=== PATIENT | male | born 1980 | race Caucasian/White ===

== ENCOUNTER 2021-01-25 12:52 | Observation (INO) | payer BC, SELFPAY ==
[2021-01-25] VITALS (10 sets, daily range): BP systolic 103–139; BP diastolic 65–92; PULSE 98–135; RESP 14–28; TEMP 36.8–37.4; O2SAT 95–100; BMI 34.2; BMI 35.4
--- NOTE | 2021-01-25 12:54 | ECG_ITS ---
APPROVED REPORT Exam: Resting ECG HR:125 bpm ECG Measurements Heart Rate 125 AXES WA 120 P 59 QRSd 84 QRS 19 QT 320 T 61 QTc 461 Conclusion Sinus tachycardia Otherwise normal ECG Electronically signed by : Jesus Rock MD 01/26/2021 06:14:02
--- NOTE | 2021-01-25 12:58 | XR_ITS ---
PROCEDURE: XR CHEST PORTABLE CLINICAL HISTORY: POST COVID COMPARISON: No exams were available for comparison FINDINGS: The cardiomediastinal silhouette and pulmonary vascularity are within normal limits. There are multifocal patchy areas of ground-glass infiltrate suspicious for Covid19 pneumonia. No acute bony findings. . IMPRESSION: Patchy ground-glass infiltrates suggesting Covid19 pneumonia. Dictated by: Seferino Delacruz MD 01/25/2021 14:30 Seferino Delacruz MD in [place] 01/25/2021 14:30
--- NOTE | 2021-01-25 12:59 | CT_ITS ---
PROCEDURE INFORMATION: Exam: CT Head Without Contrast Exam date and time: 01/25/2021 12:59 PM Age: 40 years old Clinical indication: Syncope and collapse; Patient HX: Syncopal episode, 3 weeks post covid TECHNIQUE: Imaging protocol: Computed tomography of the head without contrast. Radiation optimization: All CT scans at this facility use at least one of these dose optimization techniques: automated exposure control; mA and/or kV adjustment per patient size (includes targeted exams where dose is matched to clinical indication); or iterative reconstruction. COMPARISON: No relevant prior studies available. FINDINGS: Brain: Normal. No hemorrhage. Unremarkable white matter. No mass effect. Cerebral ventricles: No ventriculomegaly. Paranasal sinuses: Visualized sinuses are unremarkable. No fluid levels. Mastoid air cells: Visualized mastoid air cells are well aerated. Bones/joints: No acute fracture. Soft tissues: No acute changes IMPRESSION: No acute intracranial abnormality.
[2021-01-25 13:08] LABS: Chloride 99 mmol/L (98-107); Sodium 135 mmol/L (136-145)
[2021-01-25 13:09] LABS: Potassium 4.9 mmoL/L (3.5-5.1)
[2021-01-25 13:10] LABS: Basophils # 0.2 K/mm3 (0-0.2); Eosinophils # 0.1 K/mm3 (0.0-0.4); Eosinophils % 0.3 % (0.1-12.0); Hematocrit 45.7 % (42.0-52.0); Hemoglobin 14.6 g/dL (14.1-18.0); Lymphocytes # 4.1 K/mm3 (0.7-4.5); Lymphocytes % 17.7 % (10-50); Mean Corpuscular HGB Conc 31.8 g/dL (31.8-35.4); Mean Corpuscular Hemoglobin 28.9 pg (27.0-31.2); Mean Corpuscular Volume 90.7 fl (80-94); Monocytes # 1.5 K/mm3 (0.1-1.0); Monocytes % 6.4 % (1.7-9.3); Neutrophils # 17.2 K/mm3 (1.8-7.8); Neutrophils % 74.7 % (37.0-80.0); Platelet Count 336 K/mm3 (142-424); Red Blood Count 5.04 M/mm3 (4.60-6.20); Red Cell Distribution Width 13.3 % (11.5-17.5)
[2021-01-25 13:11] LABS: Blood Urea Nitrogen 18 mg/dl (9-20); Creatinine Clearance Estimated 129 mL/min (50-200); Estimated Glomerular Filt Rate 74 ml/min (>60); GFR (African American) 90 ML/MIN (>60)
[2021-01-25 13:12] LABS: Calcium 9.8 mg/dl (8.4-10.2); Glucose 318 mg/dl (74-100)
[2021-01-25 13:17] LABS: MANUAL DIFFERENTIAL MANUAL DIFFERENTIAL (MANUAL DIFF)
[2021-01-25 13:23] LABS: Troponin I 0.02 ng/ml (0.00-0.034)
[2021-01-25 13:39] LABS: Anion Gap 35.9 mEq/L (5-15); Carbon Dioxide < 5 mmol/L (22.0-30.0)
--- NOTE | 2021-01-25 13:42 | PC.NURSE ---
lab called with criticals co2 of 5 md aware
[2021-01-25 14:09] LABS: Lymphocytes % 16 % (10-50); Monocytes % 4 % (2-9); Neutrophils % 80 % (42-76); Nucleated Red Blood Cells 1; Total Cells Counted 100
[2021-01-25 14:10] LABS: Anisocytosis 1+; Macrocytosis 1+; Platelet Estimate Normal
[2021-01-25 14:47] LABS: D-Dimer 0.86 ug/mL (0.0-0.5)
--- NOTE | 2021-01-25 15:49 | PC.NURSE ---
LISA TENA speaking with Dr. Dozier at [facility]
--- NOTE | 2021-01-25 16:07 | CT_ITS ---
PROCEDURE INFORMATION: Exam: CTA Chest With Contrast Exam date and time: 01/25/2021 4:07 PM Age: 40 years old Clinical indication: Dyspnea; Patient HX: Elevated d-dimer TECHNIQUE: Imaging protocol: Computed tomographic angiography of the chest with contrast. 3D rendering (Not supervised by radiologist): MIP and/or 3D reconstructed images were created by the technologist. Radiation optimization: All CT scans at this facility use at least one of these dose optimization techniques: automated exposure control; mA and/or kV adjustment per patient size (includes targeted exams where dose is matched to clinical indication); or iterative reconstruction. Contrast material: ISOVUE 370; Contrast volume: 100 ml; Contrast route: INTRAVENOUS (IV); COMPARISON: CR XR CHEST PORTABLE 01/25/2021 1:37 PM FINDINGS: Pulmonary arteries: No evidence of pulmonary embolism. Aorta: No evidence of aortic dissection. Lungs: Diffuse patchy airspace opacities noted throughout the lungs bilaterally. Commonly reported imaging features of COVID-19 pneumonia are present. Air and fluid noted within the 3 cm density within the left lung base may represent a developing abscess. Pleural spaces: Unremarkable. No pneumothorax. No pleural effusion. Heart: Unremarkable. No cardiomegaly. No pericardial effusion. Lymph nodes: Unremarkable. No enlarged lymph nodes. Bones/joints: The thoracic spine demonstrates mild degenerative changes at multiple levels. Soft tissues: Unremarkable. IMPRESSION: 1. No evidence of pulmonary embolism. 2. No evidence of aortic dissection. 3. Diffuse patchy airspace opacities noted throughout the lungs bilaterally. 4. Commonly reported imaging features of COVID-19 pneumonia are present. Other processes such as influenza pneumonia and organizing pneumonia, as can be seen with drug toxicity and connective tissue disease, can cause a similar imaging pattern. (Reference: Walker) 5. Air and fluid noted within the 3 cm density within the left lung base may represent a developing abscess. REFERENCES: Walker Leon, et al., Radiological Society of [place] Expert Consensus Statement on Reporting Chest CT Findings Related to COVID-19. Endorsed by the Society of Thoracic Radiology, the [place] [employer], and RSNA. Published May 04, 2019.
--- NOTE | 2021-01-25 16:22 | PC.NURSE ---
pt going to for chest CT
[2021-01-25 16:25] LABS: Lactic Acid 1.9 mmol/L (0.7-2.1)
[2021-01-25 16:42] LABS: Troponin I 0.01 ng/ml (0.00-0.034)
--- NOTE | 2021-01-25 17:45 | PC.NURSE ---
Service Dr chicas.
[2021-01-25 17:56] LABS: Coronavirus 19, PCR Not Detected (NotDetected); Influenza A, PCR Not Detected (NotDetected); Influenza B, PCR Not Detected (NotDetected); Microscopic, Urine URINE MICROSCOPIC (MICROSCOPIC)
[2021-01-25 18:01] LABS: Appearance,Urine CLEAR (Clear); Bilirubin,Urine Negative (Negative); Blood, Urine Negative (Negative); Color,Urine YELLOW (Yellow); Glucose,Urine (UA) 3+ (Negative); Ketones,Urine Negative (Negative); Leukocyte Esterase,Urine Negative (Negative); Nitrate,Urine Negative (Negative); Protein,Urine Negative (Negative); Specific Gravity, Urine <= 1.005 (1.005-1.030); Urobilinogen,Urine 0.2 EU/dl (0.2)
[2021-01-25 18:25] LABS: Bacteria,Urine Trace /lpf; RBC,Urine Occasional #/hpf (0-3)
[2021-01-25 19:48] LABS: Troponin I 0.02 ng/ml (0.00-0.034)
--- NOTE | 2021-01-25 21:10 | PC.NURSE ---
PT ARRIVED TO FLOOR VIA W/C FROM ED W/STAFF @ [id number]
--- NOTE | 2021-01-25 21:29 | PC.NURSE ---
report called to @[phone]
[2021-01-25 22:18] LABS: POC Glucose,Bedside 256 (70-110)
--- NOTE | 2021-01-25 22:21 | HMH.EDGENADL ---
ED Disposition Clinical Impression: Inpatient admission status Pulmonary abscess Qualifiers: Laterality: right Lung location: unspecified part of lung Disposition: Admitted As Inpatient Condition on Discharge: Undetermined - Critical Care Critical Care Time: No Attestation: On 01/25/21, the high probability of a clinically significant, sudden or life threatening deterioration of the following system(s) required my full and direct attention, intervention and personal management. The time I documented below is in addition to time spent performing reported procedures but includes the following listed in this critical care notation. Medical Decision Making - Bobby Inquiry Pt receiving controlled substance: No Vital Signs: 01/25/21 12:59 01/25/21 13:00 01/25/21 13:45 Temperature 98.2 F Temperature Source Oral Pulse Rate 128 H 110 H Pulse Rate [Right Radial] 135 H Respiratory Rate 19 28 H 17 Blood Pressure 105/78 L 103/65 L Blood Pressure [Right Arm] 135/67 Blood Pressure Mean [Right Arm] 89 Blood Pressure Source [Right Arm] Automatic Cuff Blood Pressure Position [Right Arm] Supine 02 Sat by Pulse Oximetry 98 97 96 Oxygen Delivery Method Room Air 01/25/21 14:03 01/25/21 14:30 01/25/21 15:00 Temperature Temperature Source Pulse Rate 113 H 104 H 101 H Pulse Rate [Right Radial] Respiratory Rate 14 17 19 Blood Pressure 106/68 L 103/70 L 117/80 Blood Pressure [Right Arm] Blood Pressure Mean [Right Arm] Blood Pressure Source [Right Arm] Blood Pressure Position [Right Arm] 02 Sat by Pulse Oximetry 96 97 95 Oxygen Delivery Method 01/25/21 15:30 01/25/21 21:25 01/25/21 21:27 Temperature 99.3 F 99.1 F Temperature Source Oral Pulse Rate 102 H 107 H Pulse Rate [Right Radial] 98 H Respiratory Rate 18 18 18 Blood Pressure 107/81 L 139/92 H Blood Pressure [Right Arm] 139/92 H Blood Pressure Mean [Right Arm] 107 Blood Pressure Source [Right Arm] Blood Pressure Position [Right Arm] Supine 02 Sat by Pulse Oximetry 96 100 Oxygen Delivery Method Room Air Room Air - Lab Data Lab Results 01/25/21 12:54: WBC 23.0 H*, RBC 5.04, Hgb 14.6, Hct 45.7, MCV 90.7, MCH 28.9, MCHC 31.8, RDW 13.3, Plt Count 336, MPV 9.0, Neut % (Auto) 74.7, Lymph % (Auto) 17.7, [place] % (Auto) 6.4, Eos % (Auto) 0.3, Baso % (Auto) 1.0, Neut # (Auto) 17.2 H, Lymph # (Auto) 4.1, [place] # (Auto) 1.5 H, Eos # (Auto) 0.1, Baso # (Auto) 0.2, Total Counted 100, Neutrophils % (Manual) 80 H, Lymphocytes % (Manual) 16, Monocytes % (Manual) 4, Nucleated RBCs 1, Platelet Estimate Normal, Anisocytosis 1+, Macrocytosis 1+ 01/25/21 12:54: Sodium 135 L, Potassium 4.9, Chloride 99, Carbon Dioxide < 5 L*, Anion Gap 35.9 H, BUN 18, Creatinine 1.10, Estimated Creat Clear 129, Estimated GFR 74, Est GFR ( Amer) 90, Glucose 318 H, Calcium 9.8, Troponin I 0.02 01/25/21 12:54: D-Dimer 0.86 H 01/25/21 14:46: VBG pH 7.10 L 01/25/21 16:05: Troponin I 0.01 01/25/21 16:05: Lactate 1.9 01/25/21 17:52: Urine Color Yellow, Urine Appearance Clear, Urine pH 6.0, Ur Specific [place] <= 1.005, Urine Protein Negative, Urine Glucose (UA) 3+, Urine Ketones Negative, Urine Blood Negative, Urine Nitrate Negative, Urine Bilirubin Negative, Urine Urobilinogen 0.2, Ur Leukocyte Esterase Negative, Urine RBC Occasional, Urine WBC 3-5, Ur Squamous Epith Cells 3-5, Urine Bacteria Trace 01/25/21 17:52: SARS-CoV-2 (PCR) Not detected, Influenza A Untype (PCR) Not detected, Influenza Type B (PCR) Not detected 01/25/21 19:12: Troponin I 0.02 Result diagrams: 01/25/21 12:54 01/25/21 12:54 Orders (Tests/Meds): ED MEDICATIONS Generic Name Dose Route Start Last Admin Trade Name Freq PRN Reason Stop Dose Admin Albuterol Sulfate puffs 01/25/21 21:25 Albuterol-Hfa 90mcg/Puff Inhaler 8gm IH 02/24/21 21:11 Q4HP PRN Wheezing Fenofibrate 54 mg 01/26/21 09:00 Fenofibrate 54mg Tablet PO 02/25/21 08:59 DA
[2021-01-26 04:00] VITALS: BP 116/61; PULSE 80; RESP 16; TEMP 36.7; O2SAT 97
[2021-01-26 05:24] VITALS: BMI 35.9
--- NOTE | 2021-01-26 05:49 | PC.NURSE ---
Pt. has had no seizure activity; no c/o n/v/d, soa, dizziness or pain this shift.
[2021-01-26 05:52] LABS: Basophils % 0.2 % (0.1-2.0); Eosinophils # 0.1 K/mm3 (0.0-0.4); Eosinophils % 1.1 % (0.1-12.0); Hematocrit 34.3 % (42.0-52.0); Lymphocytes # 1.8 K/mm3 (0.7-4.5); Lymphocytes % 20.6 % (10-50); Mean Corpuscular HGB Conc 34.9 g/dL (31.8-35.4); Mean Corpuscular Hemoglobin 28.8 pg (27.0-31.2); Mean Corpuscular Volume 82.6 fl (80-94); Mean Platelet Volume 8.1 fl (7.4-10.4); Monocytes # 0.8 K/mm3 (0.1-1.0); Monocytes % 9.1 % (1.7-9.3); Neutrophils % 68.9 % (37.0-80.0); Platelet Count 175 K/mm3 (142-424); Red Blood Count 4.16 M/mm3 (4.60-6.20); Red Cell Distribution Width 13.7 % (11.5-17.5); White Blood Count 8.6 K/mm3 (4.8-10.8)
[2021-01-26 06:04] LABS: Alanine Aminotransferase 42 U/L (12-78); Albumin Level 3.6 g/dl (3.5-5.0); Albumin/Globulin Ratio 1.4 (1.1-1.8); Alkaline Phosphatase 75 U/L (38-126); Anion Gap 8.9 mEq/L (5-15); Aspartate Amino Transferase 33 U/L (17-59); Bilirubin,Total 0.6 mg/dl (0.2-1.3); Blood Urea Nitrogen 15 mg/dl (9-20); Calcium 8.8 mg/dl (8.4-10.2); Carbon Dioxide 28 mmol/L (22.0-30.0); Chloride 101 mmol/L (98-107); Creatinine Clearance Estimated 144 mL/min (50-200); Estimated Glomerular Filt Rate 83 ml/min (>60); GFR (African American) 100 ML/MIN (>60); Globulin 2.5 g/dL (1.3-3.2); Potassium 3.9 mmoL/L (3.5-5.1); Sodium 134 mmol/L (136-145); Total Protein,Serum 6.1 g/dl (6.3-8.2)
[2021-01-26 06:05] LABS: Lactic Acid 1.3 mmol/L (0.7-2.1)
[2021-01-26 06:12] LABS: Glucose 170 mg/dl (74-100)
[2021-01-26 06:24] LABS: POC Glucose,Bedside 177 (70-110)
[2021-01-26 08:00] VITALS: BP 112/70; PULSE 103; RESP 18; TEMP 36.9; O2SAT 94
--- NOTE | 2021-01-26 08:43 | HMH.HP ---
*Admission Date: 01/25/21 *Chief complaint: Syncopal event *History of present illness: 40-year-old male presented to the emergency department yesterday after a syncopal/seizure-like event. Patient was at home actually preparing for a trip when he developed an abnormal sensation in the left arm with shaking that spread across the rest of his body. He then lost consciousness. He does report biting the sides of his tongue. He has no recollection of events after that until the paramedics arrived at his home. Patient has no history of seizures. He was transported to the emergency department. Blood pressures were reported as low and patient was given IV fluids. Additional work-up was begun and patient has recent history of both Covid 19 viral pneumonia and influenza that required hospitalization at [facility] for 1 week earlier in the month. Work-up in our emergency department raise suspicion of a developing left pulmonary abscess. Patient had elevated white count as well. Decision was made to admit the patient for observation and IV fluids. This morning patient states he is feeling well. He continues to have the dry cough that he has had since his diagnosis of Covid and influenza pneumonia. He denies any recent fevers or chills. Patient had just seen his personal primary care physician the day of admission. [facility] History I have reviewed the patient's past medical history: Yes Medical History: Reports:: Diabetes Mellitus Type 2, Hypertension Denies:: Cancer, MRSA *Have you ever received a pneumonia vaccine?: No *Have you received a flu vaccine this season?: No Laterality Cases: Left: ACL Repair Amputation: No - *Social History Smoking Status: Never smoker Alcohol Intake: never *Occupational Status:: employed *Travel in the last 8 weeks: None Family Hx:: Cancer Review of Systems - Constitutional Denies anorexia, Denies body ache(s), Denies chills, Denies lack of energy - Eyes Denies blurry vision, Denies loss of vision - ENT Denies bleeding gums, Denies change in voice, Denies ear discharge - *Cardiovascular Reports shortness of breath with activity, Denies chest pain at rest, Denies chest pain with activity - *Respiratory Reports chest congestion, Reports cough, Denies pain on inspiration - *Gastrointestinal Denies belching - *Genitourinary Denies difficulty urinating, Denies painful urination, Denies blood in urine - *Musculoskeletal Denies joint pain, Denies decreased muscle mass - Integumentary/Breasts Denies bleeding lesions - *Neurologic Reports confusion, Reports seizure-like activity, Reports seizure-like activity, Denies localized weakness, Denies loss of vision, Denies numbness - Psychiatric Denies abnormal sleep pattern, Denies change in appetite Meds Home Medications Medication Instructions Recorded Confirmed Type Albuterol Sulfate [Proair Hfa] 2 puff PO Q4HP PRN 01/25/21 01/25/21 History B-Complex with Vitamin C [Super B 1 tab PO DAILY 01/25/21 01/25/21 History Complex-Vitamin C] Cholecalciferol (Vitamin D3) 1,000 unit PO DAILY 01/25/21 01/25/21 History [Vitamin D3 1,000 Unit Cap] Fenofibrate 54 mg PO DAILY 01/25/21 01/25/21 History Pantoprazole Sodium 40 mg PO DAILY 01/25/21 01/25/21 History Rosuvastatin Calcium 10 mg PO DAILY 01/25/21 01/25/21 History Sitagliptin Phosphate [Januvia 50 mg PO DAILY 01/25/21 01/25/21 History 50mg Tablet] Zinc 100 mg PO DAILY 01/25/21 01/25/21 History glipiZIDE [Glipizide ER] 2.5 mg PO DAILY 01/25/21 01/25/21 History lisinopriL [Lisinopril] 10 mg PO DAILY 01/25/21 01/25/21 History Allergies Allergy/AdvReac Type Severity Reaction Status Date / Time No Known Allergies Allergy Verified 01/25/21 12:56 Exam Vital signs and Labs for Last 24 Hours: Temp Pulse Resp BP Pulse Ox 98.5 F 103 H 18 112/70 94 L 01/26/21 08:00 01/26/21 08:00 01/26/21 08:00 01/26/21 08:00 01/26/21 08:00 Laboratory Results - last 24 hr 01/25/21
--- NOTE | 2021-01-26 09:22 | HMH.PHACONS ---
- Pharmacy Consult Date: 01/26/21 Time: 09:22 Referring provider: DR. SPEARS Reason for Consult:: VANCOMYCIN DOSING Allergies and ADEs:: Allergies Allergy/AdvReac Type Severity Reaction Status Date / Time No Known Allergies Allergy Verified 01/25/21 12:56 Home Medications:: Home Medications Medication Instructions Recorded Confirmed Type Albuterol Sulfate [Proair Hfa] 2 puff PO Q4HP PRN 01/25/21 01/25/21 History B-Complex with Vitamin C [Super B 1 tab PO DAILY 01/25/21 01/25/21 History Complex-Vitamin C] Cholecalciferol (Vitamin D3) 1,000 unit PO DAILY 01/25/21 01/25/21 History [Vitamin D3 1,000 Unit Cap] Fenofibrate 54 mg PO DAILY 01/25/21 01/25/21 History Pantoprazole Sodium 40 mg PO DAILY 01/25/21 01/25/21 History Rosuvastatin Calcium 10 mg PO DAILY 01/25/21 01/25/21 History Sitagliptin Phosphate [Januvia 50 mg PO DAILY 01/25/21 01/25/21 History 50mg Tablet] Zinc 100 mg PO DAILY 01/25/21 01/25/21 History glipiZIDE [Glipizide ER] 2.5 mg PO DAILY 01/25/21 01/25/21 History lisinopriL [Lisinopril] 10 mg PO DAILY 01/25/21 01/25/21 History Height: 1.7 m Weight: 103.782 kg Laboratory Results:: Laboratory Results - last 24 hr 01/25/21 12:54: WBC 23.0 H*, RBC 5.04, Hgb 14.6, Hct 45.7, MCV 90.7, MCH 28.9, MCHC 31.8, RDW 13.3, Plt Count 336, MPV 9.0, Neut % (Auto) 74.7, Lymph % (Auto) 17.7, [place] % (Auto) 6.4, Eos % (Auto) 0.3, Baso % (Auto) 1.0, Neut # (Auto) 17.2 H, Lymph # (Auto) 4.1, [place] # (Auto) 1.5 H, Eos # (Auto) 0.1, Baso # (Auto) 0.2, Total Counted 100, Neutrophils % (Manual) 80 H, Lymphocytes % (Manual) 16, Monocytes % (Manual) 4, Nucleated RBCs 1, Platelet Estimate Normal, Anisocytosis 1+, Macrocytosis 1+ 01/25/21 12:54: Sodium 135 L, Potassium 4.9, Chloride 99, Carbon Dioxide < 5 L*, Anion Gap 35.9 H, BUN 18, Creatinine 1.10, Estimated Creat Clear 129, Estimated GFR 74, Est GFR ( Amer) 90, Glucose 318 H, Calcium 9.8, Troponin I 0.02 01/25/21 12:54: D-Dimer 0.86 H 01/25/21 14:46: VBG pH 7.10 L 01/25/21 16:05: Troponin I 0.01 01/25/21 16:05: Lactate 1.9 01/25/21 17:52: Urine Color Yellow, Urine Appearance Clear, Urine pH 6.0, Ur Specific [place] <= 1.005, Urine Protein Negative, Urine Glucose (UA) 3+, Urine Ketones Negative, Urine Blood Negative, Urine Nitrate Negative, Urine Bilirubin Negative, Urine Urobilinogen 0.2, Ur Leukocyte Esterase Negative, Urine RBC Occasional, Urine WBC 3-5, Ur Squamous Epith Cells 3-5, Urine Bacteria Trace 01/25/21 17:52: SARS-CoV-2 (PCR) Not detected, Influenza A Untype (PCR) Not detected, Influenza Type B (PCR) Not detected 01/25/21 19:12: Troponin I 0.02 01/25/21 21:45: POC Glucose 256 H 01/26/21 05:33: WBC 8.6 D, RBC 4.16 L, Hgb 12.0 L D, Hct 34.3 L, MCV 82.6, MCH 28.8, MCHC 34.9, RDW 13.7, Plt Count 175 D, MPV 8.1, Neut % (Auto) 68.9, Lymph % (Auto) 20.6, [place] % (Auto) 9.1, Eos % (Auto) 1.1, Baso % (Auto) 0.2, Neut # (Auto) 6.0, Lymph # (Auto) 1.8, [place] # (Auto) 0.8, Eos # (Auto) 0.1, Baso # (Auto) 0.0 01/26/21 05:33: Sodium 134 L, Potassium 3.9 D, Chloride 101, Carbon Dioxide 28, Anion Gap 8.9, BUN 15, Creatinine 1.00, Estimated Creat Clear 144, Estimated GFR 83, Est GFR ( Amer) 100, Glucose 170 H D, Calcium 8.8, Total Bilirubin 0.6, AST 33, ALT 42, Alkaline Phosphatase 75, Total Protein 6.1 L, Albumin 3.6, Globulin 2.5, Albumin/Globulin Ratio 1.4 01/26/21 05:33: Lactate 1.3 01/26/21 06:17: POC Glucose 177 H Medical History: Reports:: Diabetes Mellitus Type 2, Hypertension Denies:: Cancer, MRSA Assessment and Plan (1) Pulmonary abscess Status: Acute Qualifiers: Laterality: right Lung location: unspecified part of lung Category: Medical Code(s): J85.2 - Abscess of lung without pneumonia (2) Type 2 diabetes mellitus with hyperglycemia Status: Acute Category: Medical Code(s): E11.65 - Type 2 diabetes mellitus with hyperglycemia (3) Essential hypertension Status: Acute Category: Medical Code(s): I10 - Essential (primary) hypertension
[2021-01-26 12:01] LABS: POC Glucose,Bedside 172 (70-110)
--- NOTE | 2021-01-26 13:20 | P.CONPHA_ITS ---
[facility] Pharmacy VTE Monitoring - Patient Demographics Admission date: 01/26/21 Report Date: 01/26/21 Time: 13:20 Allergies/Adverse Reactions: Patient Allergies No Known Allergies Allergy (Verified 01/25/21 12:56) Height: 1.7 m Weight: 103.782 kg Patient Problems: Current Active Problems Inpatient admission status (Acute) Pulmonary abscess (Acute) Type 2 diabetes mellitus with hyperglycemia (Acute) Essential hypertension (Acute) Personal history of COVID-19 (Acute) History of influenza (Acute) - VTE Risk Labs: VTE Related Lab Results Hgb 12.0 g/dL (14.1-18.0) L D 01/26/21 05:33 Hct 34.3 % (42.0-52.0) L 01/26/21 05:33 Plt Count 175 K/mm3 (142-424) D 01/26/21 05:33 BUN 15 mg/dl (9-20) 01/26/21 05:33 Creatinine 1.00 mg/dl (0.66-1.25) 01/26/21 05:33 Estimated Creat Clear 144 mL/min (50-200) 01/26/21 05:33 Was VTE Risk Assessment Performed: Yes VTE Score: 2 VTE Risk Level: Very Low Risk - Prophylaxis Types of VTE Prophylaxis: TEDS Knee High Location of Applied Device: Bilateral Lower Extremeties (SULEMAN HOSE ORDER PLACED)
[2021-01-26 15:18] LABS: POC Glucose,Bedside 216 (70-110)
[2021-01-26 15:27] VITALS: BP 145/88; PULSE 99; RESP 18; TEMP 37.1; O2SAT 97
--- NOTE | 2021-01-26 19:00 | PC.NURSE ---
Pt c/o of vertigo and dizziness this shift. VSS and blood glucose elevated, but stable. Did make Dr. Rae aware and he gave NNO. Also, verified pt's glipizide wasn't being restarted at this time and the dose is unavailable according to Dr. Rae.
[2021-01-26 20:00] VITALS: BP 136/72; PULSE 71; RESP 16; TEMP 36.8; O2SAT 100
--- NOTE | 2021-01-26 20:30 | PC.NURSE ---
Patient resting comfortably in bed. VSS. Denies pain. Reports dizziness and off balance at times with position changes and activity. Educated to call staff for assistance to prevent falls/injuries. Verbalizes understanding. Discussed plan of care for shift and patient denies concerns at this time.
[2021-01-27] LABS: POC Glucose,Bedside 172 (70-110)
[2021-01-27 04:00] VITALS: BP 123/74; PULSE 77; RESP 18; TEMP 36.6; O2SAT 99
[2021-01-27 05:07] VITALS: BMI 36.3
[2021-01-27 05:55] LABS: Basophils # 0.1 K/mm3 (0-0.2); Basophils % 0.5 % (0.1-2.0); Eosinophils # 0.1 K/mm3 (0.0-0.4); Eosinophils % 1.4 % (0.1-12.0); Mean Corpuscular HGB Conc 32.5 g/dL (31.8-35.4); Mean Corpuscular Hemoglobin 28.5 pg (27.0-31.2); Mean Corpuscular Volume 87.9 fl (80-94); Mean Platelet Volume 7.9 fl (7.4-10.4); Monocytes # 0.8 K/mm3 (0.1-1.0); Monocytes % 7.9 % (1.7-9.3); Neutrophils # 6.6 K/mm3 (1.8-7.8); Neutrophils % 69.1 % (37.0-80.0); Platelet Count 165 K/mm3 (142-424); Red Blood Count 3.87 M/mm3 (4.60-6.20); Red Cell Distribution Width 13.5 % (11.5-17.5); White Blood Count 9.6 K/mm3 (4.8-10.8)
[2021-01-27 06:00] LABS: Chloride 105 mmol/L (98-107); Sodium 138 mmol/L (136-145)
[2021-01-27 06:01] LABS: Potassium 4.3 mmoL/L (3.5-5.1)
[2021-01-27 06:03] LABS: Blood Urea Nitrogen 14 mg/dl (9-20)
[2021-01-27 06:04] LABS: Anion Gap 9.3 mEq/L (5-15); Carbon Dioxide 28 mmol/L (22.0-30.0); Creatinine Clearance Estimated 146 mL/min (50-200); Estimated Glomerular Filt Rate 83 ml/min (>60); GFR (African American) 100 ML/MIN (>60); Glucose 177 mg/dl (74-100)
--- NOTE | 2021-01-27 06:13 | PC.NURSE ---
Patient reports he rested fair through night. VSS. Denies pain. Reports dizziness with position changes is better but still remains. Patient is independent in room. Receiving IV antibiotics. Reports loose stools since yesterday. Will pass on to next RN for physician to address this AM.
[2021-01-27 06:41] LABS: POC Glucose,Bedside 161 (70-110)
[2021-01-27 08:00] VITALS: BP 138/92; PULSE 103; RESP 20; TEMP 36.6; O2SAT 98
--- NOTE | 2021-01-27 09:05 | HMH.DCSUM ---
General - General Admission date:: 01/25/21 Discharge date: 01/27/21 HPI HPI: 40-year-old male presented to the emergency department yesterday after a syncopal/seizure-like event. Patient was at home actually preparing for a trip when he developed an abnormal sensation in the left arm with shaking that spread across the rest of his body. He then lost consciousness. He does report biting the sides of his tongue. He has no recollection of events after that until the paramedics arrived at his home. Patient has no history of seizures. He was transported to the emergency department. Blood pressures were reported as low and patient was given IV fluids. Additional work-up was begun and patient has recent history of both Covid 19 viral pneumonia and influenza that required hospitalization at [place] for 1 week earlier in the month. Work-up in our emergency department raise suspicion of a developing left pulmonary abscess. Patient had elevated white count as well. Decision was made to admit the patient for observation and IV fluids. This morning patient states he is feeling well. He continues to have the dry cough that he has had since his diagnosis of Covid and influenza pneumonia. He denies any recent fevers or chills. Patient had just seen his personal primary care physician the day of admission. Hospital Course Hospital Course: Patient was admitted for observation. Additional history was later provided by the patient's who describes generalized tonic-clonic activity by the patient. Patient later admitted the day of hospitalization that he had had very little to eat and had also taken his glipizide for the first time. I did explain to the patient this could have led to an hypoglycemic event mimicking seizure-like activity. There is a family history of epilepsy on his mother side of the family as well. Patient was started on Keppra and will continue this as an outpatient until follow-up with his primary care physician for additional evaluation for possible seizures as testing was not available during patient's hospitalization as it occurred on the weekend. Patient did not have any seizure-like activity witnessed during hospitalization. The finding of suspected pulmonary abscess was treated with intravenous antibiotics. We did obtain records from [facility] which did confirm a diagnosis of Covid 19 pneumonia but influenza testing was negative at that facility. Records of imaging were not available. Patient had not had any pulmonary symptoms leading up to his hospitalization at this facility consistent with worsening pulmonary infection or pulmonary abscess. Blood and sputum cultures were obtained. Patient did remain afebrile during hospitalization. As he was well and had no pulmonary symptoms nor did he require any supplemental oxygen patient was discharged home. He will be discharged on Augmentin and has been advised to follow-up with his primary care physician as scheduled on February 07. Objective Vital signs: Temp Pulse Resp BP Pulse Ox 97.9 F 103 H 20 138/92 H 98 01/27/21 08:00 01/27/21 08:00 01/27/21 08:00 01/27/21 08:00 01/27/21 08:00 no acute distress - *Routine Respiratory Exam Present: CTA bilaterally - *Routine Cardiovascular Exam Present: RRR Results Labs on day of discharge: Labs from last 24 hours 01/27/21 01/27/21 01/27/21 06:32 05:21 05:21 WBC 9.6 RBC 3.87 L Hgb 11.0 L Hct 34.0 L MCV 87.9 MCH 28.5 MCHC 32.5 RDW 13.5 Plt Count 165 MPV 7.9 Neut % (Auto) 69.1 Lymph % (Auto) 21.0 [place] % (Auto) 7.9 Eos % (Auto) 1.4 Baso % (Auto) 0.5 Neut # (Auto) 6.6 Lymph # (Auto) 2.0 [place] # (Auto) 0.8 Eos # (Auto) 0.1 Baso # (Auto) 0.1 Sodium 138 Potassium 4.3 Chloride 105 Carbon Dioxide 28 Anion Gap 9.3 BUN 14 Creatinine 1.00 Estimated Creat Clear 146 Estimated GF
--- NOTE | 2021-01-27 10:38 | PC.WOUNDNOTE ---
Meds called into [facility] and D/C instructions given. Encouraged pt not to drive at this time with recent seizure like activity, verbed understanding.
== END 2021-01-27 10:30 | disposition home or self-care (01) ==
LOC: ER 18:13 → 2ND 22:11
PROVIDERS: Emergency Medicine; Admitting Provider Family Medicine; Emergency Provider Emergency Medicine; PCP Physician Assistant Medical; Visit Provider Family Medicine
DX: J85.2 Abscess of lung without pneumonia (principal); Z86.16 Personal history of COVID-19; I10 Essential (primary) hypertension; Z79.84 Long term (current) use of oral hypoglycemic drugs; Z79.899 Other long term (current) drug therapy; E11.65 Type 2 diabetes mellitus with hyperglycemia; Z20.822 Contact with and (suspected) exposure to COVID-19
CPT/HCPCS: 36415; 70450; 71045; 71275; 80048; 80053; 81001; 82962; 83605; 84484; 85007; 85025; 85378; 87040; 87070; 87205; 93005; 99284; C9803; G0378; J2543; J3370; Q9967; U0003; U0005

== ENCOUNTER 2024-02-20 10:37 | Emergency (ER) | payer BC, SELFPAY ==
[2024-02-20] VITALS (9 sets, daily range): BP systolic 100–138; BP diastolic 70–107; PULSE 72–92; RESP 18; TEMP 36.7; O2SAT 95–100; BMI 34.4
--- NOTE | 2024-02-20 10:58 | HMH.EDGENADL ---
Discharge Plan Disposition Patient Disposition: Home, Self-Care Prescriptions Prescriptions: New prednisone 20 mg tablet 40 mg PO DAILY 5 Days Qty: 10 0RF No Action rosuvastatin 10 MG tablet 10 mg PO DAILY sitagliptin phosphate 50 MG tablet 50 mg PO DAILY pantoprazole 40 MG tablet,delayed release (DR/EC) 40 mg PO DAILY lisinopril 10 MG tablet 10 mg PO DAILY fenofibrate 54 MG tablet 54 mg PO DAILY glipizide 2.5 MG tablet extended release 24 hr 2.5 mg PO DAILY zinc 50 MG tablet 100 mg PO DAILY albuterol sulfate 8.5 GM HFA aerosol inhaler 2 puff PO Q4HP PRN (Reason: Wheezing) cholecalciferol (vitamin D3) 1,000 UNIT capsule 1,000 unit PO DAILY B-complex with vitamin C 1 EACH tablet 1 tab PO DAILY levetiracetam 500 MG tablet 500 mg PO Q12 Qty: 60 0RF amoxicillin-pot clavulanate 1 EACH tablet 1 tab PO Q12H Qty: 20 0RF Referrals Follow up/Referrals: Zulema Vidales PA [Referring] - See instructions Activity Restrictions/Add. Instructions Additional Instructions/Restrictions: Check sugars multiple times per day to make sure you are not having sugar spikes while on prednisone. Call your family doctor to establish care for this visit to the emergency department and schedule follow-up within 48 hours to ensure improvement. If you have any worsening of your condition or any other concerning signs or symptoms, return to the emergency department or your primary care doctor for further evaluation. If you continue having back pain, talk to your family doctor about physical therapy and further management. Clinical Impressions Clinical Impression: Thoracic radiculopathy Print Language Print Language: Tongan Discharge ED Provider: Cesar Mabry General Adult HPI General Chief complaint: PAIN Stated complaint: right back pain Time Seen by Provider: 02/20/24 10:47 Mode of Arrival: Ambulatory Source of Information: Patient Limitations: No Limitations Description of Symptoms (Recalled from ER Triage Doc. by RN): r lower back pain,intermittent History of Present Illness HPI narrative: Please note that above description of symptoms, in this electronic medical record under categorization of recalled from ER triage doctor by RN are reflective of an initial nursing assessment, however, is not reflective of my full history and physical exam that was personally taken and clarified. Consequentially, this preceding description of symptoms, which may include the patient's categorized chief complaint in the EMR, do not reflect my personal clinical impression, and the ultimate description of history of present illness and patient stated complaints should be deferred to this section of the note. Unless stated otherwise or congruent with this section of the note, additional signs, symptoms, or incongruence should be interpreted as inaccurate with my clinical impression. Related Data Home Medications ?Medication ?Instructions ?Recorded ?Confirmed B-complex with vitamin C 1 tab PO DAILY Supplement 01/25/21 01/25/21 albuterol sulfate 90 mcg/actuation 2 puff PO Q4HP PRN Wheezing 01/25/21 01/25/21 aerosol inhaler cholecalciferol (vitamin D3) 25 1,000 unit PO DAILY Supplement 01/25/21 01/25/21 mcg (1,000 unit) capsule fenofibrate 54 mg tablet 54 mg PO DAILY High cholesterol 01/25/21 01/25/21 glipizide 2.5 mg tablet, extended 2.5 mg PO DAILY Diabetes 01/25/21 01/25/21 release 24 hr lisinopril 10 mg tablet 10 mg PO DAILY High blood pressure 01/25/21 01/25/21 pantoprazole 40 mg tablet,delayed 40 mg PO DAILY GERD 01/25/21 01/25/21 release rosuvastatin 10 mg tablet 10 mg PO DAILY High cholesterol 01/25/21 01/25/21 sitagliptin phosphate 50 mg tablet 50 mg PO DAILY Diabetes 01/25/21 01/25/21 zinc 50 mg tablet 100 mg PO DAILY Supplement 01/25/21 01/25/21 Previous Rx's ?Medication ?Instructions ?Recorded amoxicillin 875 mg-potassium 1 tab PO Q12H #20 tabs 01/27/21 clavulanate 125 mg tablet levetiracetam 500 mg tablet 500 mg PO Q12 #60 tabs 01/27/21 prednisone 20 mg tablet 40 mg (2 x 20 mg) PO DAILY 5 days 02/20/24 #10 tabs Allergies Allergy/AdvReac Type Severity Reaction Status Date / Time No Known Allergies Allergy Verified 01/25/21 12:56 [facility] Disclaimer: The information contained in this section may have been updated after the patient was seen, as this information can be updated by other users. Social History Smoking Status: Never smoker alcohol intake: never current occupational status: employed Travel in the last 8 weeks: None Have you lived/traveled outside [place] in past 30 days?: No Contact w/someone who lives/traveled outside [place] past 30 days?: No Exposure to someone with infectious disease in past 14 days?: No Do you have a fever (greater than 100.4 F or 38 C)?: No Have you tested positive for COVID-19: No Exposed to someone with COVID-19 in past 14 days?: No Do you have a sore throat?: No Do you have a cough?: No Do you have any weakness?: No Do you have any diarrhea?: No Are you experiencing any unusual bleeding?: No Do you have any muscle aches/pain?: No Do you have any abdominal pain?: No Are you experiencing loss of taste or smell?: No Other Medical History Have you received the Flu Vaccine for this season: No Have you received the Pneumonia Vaccine: No ROS Obtained: Yes All systems reviewed & no additional complaints except as documented Physical Exam General General appearance: alert Head Head exam: atraumatic and normocephalic Eye Eye exam: Present normal appearance, PERRL and EOMI Neck Neck exam: Present normal inspection, full ROM and trachea midline Respiratory Respiratory exam: Absent respiratory distress, wheezes, stridor, accessory muscle use or prolonged expiratory phase Cardiovascular Cardiovascular exam: Present other (Pulses equal symmetric in upper and lower extremities) Abdominal Exam Abdominal exam: Present soft; Absent distention, tenderness or pulsatile mass Extremities Exam Extremities exam: Absent edema Back Exam Back exam: Present CVA tenderness (R); Absent CVA tenderness (L) Neurological Exam Neurological exam: Present alert, oriented X3 and CN II-XII intact; Absent motor sensory deficit Skin Skin exam: Present warm and dry; Absent diaphoresis or erythema Medical Decision Making Medical Records Medical records reviewed: Yes I reviewed the patient's medical records. Screening: Per USPSTF and CDC recommendations, given the prevalence of disease in our region, it is our hospital?s policy to screen for HIV and viral Hepatitis for all patients aged 18 and over and those with ongoing risk factors. Bobby Inquiry Pt receiving controlled substance: No Bobby was queried for this patient: No Vital Signs: 02/20/24 10:38 02/20/24 11:01 02/20/24 11:16 Temperature 98.1 F Temperature Source Oral Pulse Rate 80 72 Pulse Rate [Right] 92 H Respiratory Rate 18 18 18 Blood Pressure 120/75 111/78 Blood Pressure [Right Arm] 138/107 H Blood Pressure Mean 90 85 Blood Pressure Mean [Right Arm] 117 02 Sat by Pulse Oximetry 100 99 99 Oxygen Delivery Method Room Air 02/20/24 11:30 02/20/24 11:45 02/20/24 12:15 Temperature Temperature Source Pulse Rate 76 82 77 Pulse Rate [Right] Respiratory Rate Blood Pressure 109/77 L 106/78 L Blood Pressure [Right Arm] Blood Pressure Mean Blood Pressure Mean [Right Arm] 02 Sat by Pulse Oximetry 98 95 97 Oxygen Delivery Method 02/20/24 13:00 02/20/24 13:15 Temperature Temperature Source Pulse Rate 75 75 Pulse Rate [Right] Respiratory Rate Blood Pressure 100/74 L 114/86 Blood Pressure [Right Arm] Blood Pressure Mean Blood Pressure Mean [Right Arm] 02 Sat by Pulse Oximetry 99 98 Oxygen Delivery Method Lab Data Lab Results 02/20/24 10:55: WBC 6.6, RBC 5.02, Hgb 13.9 L, Hct 42.6, MCV 84.9, MCH 27.7, MCHC 32.6, RDW 12.2, Plt Count 212, MPV 10.6 H, Neut % (Auto) 51.4, Lymph % (Auto) 36.1, Ward % (Auto) 10.1 H, Eos % (Auto) 1.5, Baso % (Auto) 0.6, Neut # (Auto) 3.4, Lymph # (Auto) 2.4, Ward # (Auto) 0.7, Eos # (Auto) 0.1, Baso # (Auto) 0.0, Sodium 137, Potassium 4.4, Chloride 103, Carbon Dioxide 25, Anion Gap 13.4, BUN 14, Creatinine 1.10, Estimated Creat Clear 122, Estimated GFR 73, Est GFR ( Amer) 88, Glucose 137 H, Calcium 10.1, Total Bilirubin 0.4, AST 33, ALT 42, Alkaline Phosphatase 78, C-Reactive Protein 23.1 H, Total Protein 7.2, Albumin 4.8, Globulin 2.4, Albumin/Globulin Ratio 2.0 H, Lipase 166, Urine Color Yellow, Urine Appearance Clear, Urine pH 6.0, Ur Specific [place] >= 1.030, Urine Protein Negative, Urine Glucose (UA) 3+, Urine Ketones Negative, Urine Blood Negative, Urine Nitrate Negative, Urine Bilirubin Negative, Urine Urobilinogen 0.2, Ur Leukocyte Esterase Negative, Urine RBC None, Urine WBC Occasional, Ur Squamous Epith Cells None, Urine Bacteria None, HCV Ab CHRISTY w/Rflx PCR Qn Negative, HIV Ag/Ab Combo Qual Negative 02/20/24 10:55 02/20/24 10:55 Orders (Tests/Meds): ED MEDICATIONS Discontinued Medications Generic Name Dose Route Start Last Admin Trade Name Andreaq PRN Reason Stop Dose Admin Iopamidol 75 ml 02/20/24 12:31 02/20/24 12:32 Iopamidol-370 (76%);100ml Bottle IV 02/20/24 12:32 75 ml ONCE ONE Administration Ketorolac Tromethamine 15 mg 02/20/24 10:53 02/20/24 11:05 Ketorolac 30mg/Ml Vial IV 02/20/24 10:54 15 mg ONCE ONE Administration Methocarbamol 1,500 mg 02/20/24 12:44 02/20/24 12:52 Methocarbamol 500mg Tablet PO 02/20/24 12:45 1,500 mg ONCE ONE Administration Sodium Chloride 10 ml 02/20/24 12:31 02/20/24 12:32 Sodium Chloride 0.9% 10ml Syr (Rad Only) IV 02/20/24 12:32 10 ml ONCE ONE Administration ORDERS Category Date Time Status CT abdomen pelvis w con Stat Cat Scan 02/20/24 12:22 Completed POCUS Point of Care (ER Only) Stat Exams 02/20/24 11:28 Ordered CBC w/Auto Diff [Complete Blood Count Auto Diff] Stat Lab 02/20/24 10:55 Completed CMP [Comprehensive Metabolic Panel] Stat Lab 02/20/24 10:55 Completed CRP [C-Reactive Protein] Stat Lab 02/20/24 10:55 Completed HIV Combo Stat Lab 02/20/24 10:55 Completed Hepatitis C Ab Qual. W/ RFX Stat Lab 02/20/24 10:55 Completed Lipase Stat Lab 02/20/24 10:55 Completed UA [Urinalysis and Microscopic] Stat Lab 02/20/24 10:55 Completed Medical Decision Narrative: 43-year-old male presenting with right flank pain. He states that he went to bed around 9 or 10 PM last night, 02/18 and started complaining of right flank pain. Does not radiate, mild in intensity initially, intermittent. When it flares up it seems to be getting worse. Intermittent, nothing in particular makes it better or worse, but when it flares up now it is moderate to severe in intensity and only lasts for couple of minutes. Came in for further evaluation. Denies fevers, chills, vomiting, blood in his stool, hematuria, history was obtained via conversation with patient or any other concerning signs or symptoms.. On arrival, patient hemodynamically stable, alert, oriented x4, appropriate, GCS 15, moving all extremities spontaneously, pupils equal and reactive to light. Full physical exam performed and significant for well-appearing male no acute distress walking without issue, changing position without issue. Abdomen is soft, nontender, nondistended. He does have some right flank tenderness with no overlying skin changes. Afebrile, nontachycardic, normotensive. Differential includes PUD, gastritis, enteritis, gastroenteritis, pancreatitis, SBO, colitis, diverticulitis, nephrolithiasis, UTI, cholecystitis, choledocholithiasis, appendicitis, torsion, hepatitis, aortic pathology, mesenteric ischemia among others. Patient placed on continuous cardiac monitoring and continuous pulse ox with initial blood pressure 138/107, heart rate 92, saturation 100% on room air. Patient was given Toradol for symptomatic management and correction of underlying abnormalities. Workup independently interpreted and significant for nonactionable hematologic labs. Bedside [id number] ultrasound was performed. No evidence of cholecystitis with negative Garcia sign. On independent interpretation of imaging, no acute intra-abdominal abnormality on CT. See radiology read for full review of final results. Patient still having pain, given 1500 mg Robaxin. On reevaluation, patient states that this did not help much. On surprised by this. Repeat physical exam, patient does have some midline thoracic spinal tenderness that causes reproduction of the pain going down his right side of his back. Because of this, I feel this is most likely in home sales representative of a radiculopathy and neuropathic pain. Neurovascularly intact and ambulatory, so do not feel the patient has an acute central compressive pathology. Patient given initial dose of prednisone here. States that he does have lancets at home and ability to check his blood sugar in the setting of diabetes and being on prednisone. Importance of this was stressed and patient voiced his understanding, did as well. Because patient at baseline without signs or symptoms of clinical decompensation, deemed appropriate for discharge. Results were relayed to patient who voiced understanding and were agreeable to outpatient management and follow up. I discussed my clinical impression with patient and answered all questions. At this time, the evidence for any other entities in the differential is insufficient to warrant any further testing or ED observation. This was explained as well. Advisory was given that persistent or worsening symptoms require further evaluation. I confirmed the understanding of this discussion. Behavioral Health Technician disclaimer Much of this encounter note is an electronic disk operator spoken language to printed text. Electronic disk operator of the spoken language may permit errors. Although I have reviewed the note, some errors may still exist. Procedures Limited Ultrasound Indication:: Limited RUQ ultrasound Indication: Right flank pain Identified structures: -Gallbladder -Gallbladder wall -Common bile duct -Liver Findings: Sonographic Garcia sign: Absent Gallstones: Absent Sludge: Absent Pericholecystic fluid: Absent Maximal GB wall thickness (mm) (normal is </= 3mm): Normal Common bile duct width (mm) (normal is </= 6mm): Normal Gallbladder width (cm) (normal is < 4cm): Normal Gallbladder length (cm) (normal is < 10cm): Normal Impression: Normal gallbladder and right upper quadrant ultrasound Images were saved to permanent archive The study was technically adequate CPT 46075-19 This study was performed by me, and I personally interpreted all images/videos. Based on my clinical judgement, these images were adequate and did not necessitate further imaging. Critical Care Critical Care Time Critical Care Time: No
[2024-02-20 11:02] LABS: Microscopic, Urine URINE MICROSCOPIC (MICROSCOPIC)
[2024-02-20 11:04] LABS: Appearance,Urine CLEAR (Clear); Basophils % 0.6 % (0.1-2.0); Bilirubin,Urine Negative (Negative); Blood, Urine Negative (Negative); Color,Urine YELLOW (Yellow); Eosinophils # 0.1 K/mm3 (0.0-0.4); Eosinophils % 1.5 % (0.1-12.0); Glucose,Urine (UA) 3+ (Negative); Hematocrit 42.6 % (42.0-52.0); Hemoglobin 13.9 g/dL (14.1-18.0); Ketones,Urine Negative (Negative); Leukocyte Esterase,Urine Negative (Negative); Lymphocytes # 2.4 K/mm3 (0.7-4.5); Lymphocytes % 36.1 % (10-50); Mean Corpuscular HGB Conc 32.6 g/dL (31.8-35.4); Mean Corpuscular Hemoglobin 27.7 pg (27.0-31.2); Mean Corpuscular Volume 84.9 fl (80-94); Mean Platelet Volume 10.6 fl (7.4-10.4); Monocytes # 0.7 K/mm3 (0.1-1.0); Monocytes % 10.1 % (1.7-9.3); Neutrophils # 3.4 K/mm3 (1.8-7.8); Neutrophils % 51.4 % (37.0-80.0); Nitrate,Urine Negative (Negative); Platelet Count 212 K/mm3 (142-424); Protein,Urine Negative (Negative); Red Blood Count 5.02 M/mm3 (4.60-6.20); Red Cell Distribution Width 12.2 % (11.5-17.5); Specific Gravity, Urine >= 1.030 (1.005-1.030); Urobilinogen,Urine 0.2 EU/dl (0.2); White Blood Count 6.6 K/mm3 (4.8-10.8)
[2024-02-20] MEDS: KETOROLAC 30MG/ML VIAL 15 MG IV (11:05)
[2024-02-20 11:08] LABS: Albumin Level 4.8 g/dl (3.5-5.0); Chloride 103 mmol/L (98-107); Sodium 137 mmol/L (136-145)
[2024-02-20 11:09] LABS: Potassium 4.4 mmoL/L (3.5-5.1)
[2024-02-20 11:11] LABS: Alanine Aminotransferase 42 U/L (12-78); Alkaline Phosphatase 78 U/L (38-126); Anion Gap 13.4 mEq/L (5-15); Aspartate Amino Transferase 33 U/L (17-59); Bilirubin,Total 0.4 mg/dl (0.2-1.3); Blood Urea Nitrogen 14 mg/dl (9-20); Carbon Dioxide 25 mmol/L (22.0-30.0); Creatinine Clearance Estimated 122 mL/min (50-200); Estimated Glomerular Filt Rate 73 ml/min (>60); GFR (African American) 88 ML/MIN (>60)
[2024-02-20 11:12] LABS: Calcium 10.1 mg/dl (8.4-10.2); Globulin 2.4 g/dL (1.3-3.2); Glucose 137 mg/dl (74-100); Lipase 166 U/L (23-300); Total Protein,Serum 7.2 g/dl (6.3-8.2)
[2024-02-20 11:14] LABS: WBC,Urine Occasional #/hpf (0-3)
[2024-02-20 11:17] LABS: C-Reactive Protein 23.1 mg/L (0-4)
[2024-02-20 12:00] LABS: Hepatitis C Ab Qual. W/ RFX NEGATIVE (Negative)
[2024-02-20 12:03] LABS: HIV Combo NEGATIVE (Negative)
--- NOTE | 2024-02-20 12:22 | CT_ITS ---
PROCEDURE INFORMATION: Exam: CT Abdomen And Pelvis With Contrast Exam date and time: 02/20/2024 12:31 PM Age: 43 years old Clinical indication: Abdominal pain; Flank; Right; Additional info: R flank pain crescendo TECHNIQUE: Imaging protocol: Computed tomography of the abdomen and pelvis with contrast. Radiation optimization: All CT scans at this facility use at least one of these dose optimization techniques: automated exposure control; mA and/or kV adjustment per patient size (includes targeted exams where dose is matched to clinical indication); or iterative reconstruction. Contrast material: ISOVUE; Contrast volume: 75 ml; Contrast route: IV; COMPARISON: CT ANGIO CHEST PE PROTOCOL 01/25/2021 4:25 PM FINDINGS: Liver: Decreased density throughout the liver compatible with hepatic steatosis. Gallbladder and biliary ducts: Gallbladder unremarkable Pancreas: Pancreas unremarkable Spleen: The spleen is unremarkable. Adrenal glands: Adrenal glands unremarkable. Kidneys and ureters: No hydronephrosis. Stomach and bowel: Unremarkable. No obstruction. No mucosal thickening. Appendix: Appendix unremarkable Intraperitoneal space: Unremarkable. No free air. No significant fluid collection. Vasculature: Unremarkable. No abdominal aortic aneurysm. Lymph nodes: Unremarkable. No enlarged lymph nodes. Urinary bladder: Unremarkable as visualized. Reproductive: Unremarkable as visualized. Bones/joints: Unremarkable. No acute fracture. Soft tissues: Fat filled inguinal hernia IMPRESSION: 1. No evidence of acute abnormality. 2. Decreased density throughout the liver compatible with hepatic steatosis.
[2024-02-20] MEDS: IOPAMIDOL-370 (76%);100ML BOTTLE 75 ML IV (12:32)
[2024-02-20] MEDS: SODIUM CHLORIDE 0.9% 10ML SYR (RAD ONLY) 10 ML IV (12:32)
[2024-02-20] MEDS: METHOCARBAMOL 500MG TABLET 1500 MG PO (12:52)
--- NOTE | 2024-02-20 12:58 | PC.NURSE ---
Patient in room and needs nothing
--- NOTE | 2024-02-20 13:30 | PC.NURSE ---
DR ROSAS AT BEDSIDE TO REEVALUATE PT
[2024-02-20] MEDS: predniSONE 20MG TAB 40 MG PO (13:43)
== END 2024-02-20 13:53 | disposition home or self-care (01) ==
PROVIDERS: Emergency Provider Emergency Medicine; PCP Nurse Practitioner Primary Care
DX: M54.50 Low back pain, unspecified (principal); M54.14 Radiculopathy, thoracic region
CPT/HCPCS: 74177; 80053; 81001; 83690; 85025; 86140; 86803; 87389; 96374; 99284; J1885; Q9967